=== PATIENT | male | born 1985 | race Asian ===

== ENCOUNTER 2016-11-28 15:36 | Emergency (ER) | payer SELFPAY ==
[~2016-11-28] VITALS: Ht 165.1 cm; Wt 65.5 kg
[2016-11-28 17:57] VITALS: BP 132/82
[2016-11-28] MEDS ORDERED: PERTUSS(ACELL),DIPH,TET VAC/PF 0.5 ML VIAL IM ONE (19:00)
== END 2016-11-28 19:45 | disposition home or self-care (01) ==
LOC: EMS 15:37
DX: S61.412A Laceration without foreign body of left hand, initial encounter (principal); W45.8XXA Other foreign body or object entering through skin, initial encounter; Y93.89 Activity, other specified; Y92.89 Other specified places as the place of occurrence of the external cause; Y99.8 Other external cause status
CPT/HCPCS: 90471; 90715; 99283

== ENCOUNTER 2019-12-10 16:13 | Emergency (ER) | payer MEDICAID ==
[~2019-12-10] VITALS: Ht 157.5 cm; Wt 90.9 kg
[2019-12-10] MEDS ORDERED: ASPI-728 PO (16:18)
[2019-12-10 17:06] LABS: HEMATOCRIT 42.2 % (41-53); HEMOGLOBIN 13.5 g/dL (13.5-17.5); MEAN CORPUSCULAR HGB CONC 32.1 G/dL (31.0-37.0); MEAN CORPUSCULAR VOLUME 65 fL (80-100); RED BLOOD CELL COUNT(AUTO) 6.45 MIL/uL (4.50-5.90)
[2019-12-10 17:17] LABS: ANION GAP 5 mmol/L (8-16); CALCIUM, TOTAL 8.9 mg/dL (8.8-10.5); CARBON DIOXIDE 30 mmol/L (22-29); CHLORIDE 104 mmol/L (98-107); CREATININE 0.86 mg/dL (0.60-1.30); GLOMERULAR FILTR. RATE CALC > 60 mL/min (>60); GLUCOSE,RANDOM 125 mg/dL (70-110); POTASSIUM 4.2 mmol/L (3.5-5.1); SODIUM SERUM 139 mmol/L (136-145); UREA NITROGEN, BLOOD 9 mg/dL (7-18)
[2019-12-10 17:31] LABS: INR 1.2 (0.9-1.1); PROTHROMBIN TIME 12.5 SEC (9.4-11.6)
[2019-12-10 17:34] LABS: ALANINE AMINOTRANSFERASE 1005 U/L (12-78); ALBUMIN 3.6 g/dL (3.4-5.0); ALKALINE PHOSPHATASE 133 U/L (46-116); ASPARTATE AMINOTRANSFERASE 477 U/L (15-37); BILIRUBIN,TOTAL 2.2 mg/dL (0.1-1.0); CREATINE KINASE, TOTAL ONLY 73 U/L (39-308); TOTAL PROTEIN, SERUM 8.2 g/dL (6.4-8.2)
[2019-12-10 18:33] LABS: PLATELET COUNT (AUTO) 171 K/uL (150-450)
[2019-12-10 18:34] LABS: BAND NEUTROPHILS % (MANUAL) 0 % (0-5); EOSINOPHILS % (MANUAL) 1 % (1-6); LYMPHOCYTES % (MANUAL) 35 % (22-44); MONOCYTES % (MANUAL) 9 % (2-9); SEGMENTED NEUTROPHILS % 55 % (40-70)
[2019-12-10 20:45] VITALS: BP 148/70
== END 2019-12-10 20:46 | disposition home or self-care (01) ==
LOC: EMS 16:13
DX: I10 Essential (primary) hypertension (principal); E80.6 Other disorders of bilirubin metabolism; R74.0 Nonspecific elevation of levels of transaminase and lactic acid dehydrogenase [LDH]; R42 Dizziness and giddiness; R07.9 Chest pain, unspecified; F17.210 Nicotine dependence, cigarettes, uncomplicated; Z79.82 Long term (current) use of aspirin
CPT/HCPCS: 76705; 86706; 86708; 86803; 87340; 93005; 99406; 36415-L1; 36415-TC; 71045-TC

== ENCOUNTER 2025-02-13 10:15 | Emergency (ER) | payer MEDICAID ==
[~2025-02-13] VITALS: Ht 157.5 cm; Wt 80.9 kg
[~2025-02-13 10:15] MED LIST: ASPI-1450 PO
[2025-02-13 10:16] VITALS: TEMP 98.6
[2025-02-13] MEDS: IBUPROFEN 400 MG TABLET PO ONE (11:25)
[2025-02-13] MEDS: HYDROCODONE/ACETAMINOPHEN 5-325 MG TABLET PO ONE (11:25)
[2025-02-13] MEDS ORDERED: HYDR-4072 PO (11:57)
[2025-02-13 12:11] VITALS: BP 132/82; PULSE 72; RESP 16; O2SAT 99
== END 2025-02-13 12:12 | disposition home or self-care (01) ==
LOC: EMS 10:15
DX: K08.89 Other specified disorders of teeth and supporting structures (principal); K74.60 Unspecified cirrhosis of liver; Z79.82 Long term (current) use of aspirin; F17.210 Nicotine dependence, cigarettes, uncomplicated; Z98.890 Other specified postprocedural states; Z79.899 Other long term (current) drug therapy
CPT/HCPCS: 99283